=== PATIENT | male | born 1975 | race Caucasian/White ===

== ENCOUNTER 2018-04-08 18:16 | Emergency (ER) | payer MEDICAID, OTHER ==
[~2018-04-08] VITALS: Ht 162.6 cm; Wt 76.0 kg
[2018-04-08] MEDS ORDERED: SODIUM CHLORIDE 0.9% 1,000 ML IV ONE (18:42)
[2018-04-08] MEDS ORDERED: TETANUS, DIPHTHERIA, PERTUSSIS VAC/PF 0.5ML (>7YR OLD) IM ONE (18:45)
[2018-04-08 19:29] LABS: BASOPHILS % 0.4 % (0.0-2.0); EOSINOPHILS % 3.3 % (0.0-5.0); HEMATOCRIT. 46.5 % (42.0-52.0); HEMOGLOBIN. 15.5 g/dL (14.0-18.0); LYMPHOCYTES % 49.1 % (20.0-50.0); MEAN CORPUSCULAR HEMOGLOBIN 29.4 pg (28.0-32.0); MEAN CORPUSCULAR VOLUME 87.9 fL (80.0-94.0); MEAN PLATELET VOLUME 8.6 fl (7.4-10.4); MONOCYTES % 8.6 % (2.0-8.0); NEUTROPHILS % 38.6 % (40.0-76.0); PLATELET 283 x1000/uL (130-400); RED BLOOD CELL COUNT 5.29 mill/uL (4.7-6.1); RED CELL DISTRIBUTION WIDTH 13.8 % (11.6-14.6)
[2018-04-08] MEDS ORDERED: BACITRACIN/POLYMYXIN B SULFATE OINT 15GM TOP ONE (19:30)
[2018-04-08 19:35] LABS: CHLORIDE 101 mEq/L (98-107); PROTHROMBIN TIME 10.4 sec (9.1-11.1)
[2018-04-08 19:41] LABS: ETHANOL BLOOD 149 mg/dL
[2018-04-08] MEDS ORDERED: POTASSIUM CHLORIDE 20MEQ/PACKET PO ONE (19:45)
[2018-04-08 22:14] VITALS: BP 129/70
[2018-04-08 22:36] LABS: *AMPHETAMINES SCREEN URINE NEGATIVE (NEGATIVE); *BARBITURATES SCREEN URINE NEGATIVE (NEGATIVE); *BENZODIAZEPINES SCREEN URINE NEGATIVE (NEGATIVE); *COCAINE SCREEN URINE NEGATIVE (NEGATIVE)
[2018-04-08 22:37] LABS: CANNABINOID URINE SCREEN NEGATIVE (NEGATIVE); METHADONE URINE SCREEN NEGATIVE (NEGATIVE); OPIATES URINE SCREEN NEGATIVE (NEGATIVE); PHENCYCLIDINE URINE SCREEN NEGATIVE (NEGATIVE)
[2018-04-08 22:50] LABS: CLARITY URINE CLEAR (CLEAR); COLOR URINE YELLOW (YELLOW); KETONES URINE NEGATIVE (NEGATIVE); LEUKOCYTE ESTERASE URINE NEGATIVE (NEGATIVE); NITRITE URINE NEGATIVE (NEGATIVE); OCCULT BLOOD URINE NEGATIVE (NEGATIVE); PROTEIN URINE NEGATIVE (NEGATIVE); SPECIFIC GRAVITY URINE 1.009 (1.005-1.030); UROBILINOGEN URINE 0.2 E.U./dL (0.2-1.0)
== END 2018-04-08 22:14 | disposition home or self-care (01) ==
LOC: ER 18:16
DX: S00.81XA Abrasion of other part of head, initial encounter (principal); S60.512A Abrasion of left hand, initial encounter; V18.0XXA Pedal cycle driver injured in noncollision transport accident in nontraffic accident, initial encounter; Y93.89 Activity, other specified; Y92.89 Other specified places as the place of occurrence of the external cause; Y99.8 Other external cause status
CPT/HCPCS: 36415; 70450; 70486; 72125; 80053; 80305; 81003; 85025; 85610; 90471; 90715; 99285; G0482; J7030

== ENCOUNTER 2019-08-20 12:54 | Emergency (ER) | payer MEDICAID ==
[~2019-08-20] VITALS: Ht 162.6 cm; Wt 78.0 kg
[2019-08-20] MEDS ORDERED: IBUPROFEN 600MG TABLET PO ONE (16:15)
[2019-08-20 16:25] VITALS: BP 130/75
== END 2019-08-20 16:26 | disposition home or self-care (01) ==
LOC: ER 12:54
DX: J06.9 Acute upper respiratory infection, unspecified (principal); B34.8 Other viral infections of unspecified site; M79.10 Myalgia, unspecified site
CPT/HCPCS: 99282

== ENCOUNTER 2021-05-30 16:59 | Emergency (ER) | payer BC, MEDICAID ==
[~2021-05-30] VITALS: Ht 165.1 cm; Wt 76.0 kg
[2021-05-30 17:02] VITALS: BP 122/80
[2021-05-30] MEDS ORDERED: P20 MT (17:21)
[2021-05-30] MEDS ORDERED: DIPH25TA26 PO (17:21)
[2021-05-30] MEDS ORDERED: PREDNISONE 20MG TABLET PO ONE (17:30)
[2021-05-30] MEDS ORDERED: DIPHENHYDRAMINE 50MG CAPSULE PO ONE (17:30)
== END 2021-05-30 18:01 | disposition home or self-care (01) ==
LOC: ER 16:59
DX: T78.3XXA Angioneurotic edema, initial encounter (principal); X58.XXXA Exposure to other specified factors, initial encounter
CPT/HCPCS: 99283; J7512; Q0163